=== PATIENT | male | born 1990 | race Caucasian/White ===

== ENCOUNTER 2016-04-21 01:54 | Inpatient (IN) ==
[2016-04-21] MEDS ORDERED: 0.9 % Sodium Chloride 1,000 ML IVC ONE ×2 (02:27→03:57)
[2016-04-21 02:36] LABS: VBG HCO3 24.3 mEq/L (21-27); VBG PH 7.37 pH Units (7.32-7.42)
[2016-04-21 02:37] LABS: Basophils # 0.1 K/mcL (0.0-0.2); Basophils % 0.7 %; Eosinophils # 0.3 K/mcL (0.0-0.6); Hematocrit 44.8 % (37.5-50.1); Hemoglobin 15.6 g/dL (12.9-16.9); Immature Granulocytes % 1.6 % (0-4); Lymphocytes # 2.9 K/mcL (0.6-4.6); Lymphocytes % 26.5 %; Mean Corpuscular HGB Conc 34.8 g/dL (31.6-35.5); Mean Corpuscular Hemoglobin 31.3 pg (28.0-33.3); Mean Platelet Volume 11.7 fL (9.4-12.4); Monocytes # 0.8 K/mcL (0.0-1.3); Neutrophils # 6.7 K/mcL (1.6-8.9); Platelet Count 207 K/mcL (140-400); Red Blood Count 4.98 M/mcL (4.19-5.50); Segmented Neutrophils % 61.2 %
[2016-04-21 02:49] LABS: Magnesium 1.9 mg/dL (1.6-2.6); Phosphorous 4.4 mg/dL (2.3-4.7)
[2016-04-21 02:56] LABS: Alanine Aminotransferase 16 Units/L (0-55); Albumin 3.7 g/dL (3.5-5.0); Alkaline Phosphatase 85 Units/L (38-126); Aspartate Amino Transferase 10 Units/L (5-34); BUN/Creatinine Ratio 16 (6-26); Bilirubin,Total 0.2 mg/dL (0.2-1.2); Blood Urea Nitrogen 19 mg/dL (8-26); Calcium 10.1 mg/dL (8.6-10.8); Carbon Dioxide 17 mEq/L (19-29); Chloride 95 mEq/L (98-109); Globulin 3.8 g/dL (2.4-3.5); Osmolality,Calculated 307 (280-300); Potassium 4.2 mEq/L (3.5-4.5); Sodium 131 mEq/L (136-145); Total Protein 7.5 g/dL (6.0-8.3); eGFR For African Americans > 60 (> 60); eGFR For Non-African Americans > 60 (> 60)
[2016-04-21 02:58] LABS: Glucose 684 mg/dL (70-99)
[2016-04-21] MEDS ORDERED: Vancomycin 1,750 MG in D5% in Water 250 ML IVPB ONE (03:09)
[2016-04-21] MEDS ORDERED: Piperacillin/Tazobactam 3.375 GM in D5% in Water (Mini-Bag+) 100 ML IVPB ONE (03:09)
[2016-04-21 03:15] LABS: Bilirubin,Urine Negative (Negative); Blood,Urine Negative (Negative); Clarity,Urine Clear (Clear); Color,Urine Yellow (Yellow); Glucose,Urine (UA) >=1000 mg/dL (Normal); Ketones,Urine Negative (Negative); Leukocyte Esterase,Urine Negative (Negative); Nitrite,Urine Negative (Negative); Protein,Urine Negative (Neg-Trace); Specific Gravity,Urine > 1.030 (1.010-1.025); Urobilinogen,Urine Normal (Normal)
--- NOTE | 2016-04-21 03:34 | Emergency Department Note ---
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 He presents today due to hyperglycemia and continued/worsening redness of groin abscess. Patient was seen here in the ED approximately 2-3 days ago and prescribed Bactrim for groin abscess/cellulitis. He states that the erythema surrounding the area is getting worse. He also has been taking his blood sugar on home and blood sugars up in 500s to 600s. He takes Lantus and short-acting insulin home, usually Lantus 30 units at night. He does admit that he has been missing some doses because he "does not like injecting himself. "Otherwise, he denies any reverse, nausea, vomiting, diarrhea, abdominal pain, chest pain, shortness breath. Pain Scale: 6 - Related Data Previous Rx's Medication Instructions Recorded HYDROcodone/Acet 5/325 mg [[place] 1 tab PO Q6H PRN #8 tab 04/29/15 5-325 mg] Gabapentin [Neurontin] 300 mg PO BID #30 capsule 07/01/15 Insulin ASPART [Novolog Flexpen] 10 unit SQ TID #3 mls 07/01/15 Lisinopril [Zestril] 5 mg PO DAILY #30 tablet 07/01/15 Metformin [Glucophage] 500 mg PO 0800 #30 tablet 07/01/15 Fluticasone Propionate Nasal 2 spray NS DAILY 7 Days 08/11/15 [Flonase] Amoxicillin/Clavulanate [Augmentin] 500 mg PO BIDWM #14 tablet 08/19/15 Doxycycline 100 mg PO BID #14 capsule 08/19/15 Insulin Glargine,Hum.rec.anlog 40 unit SQ HS #3 mls 08/19/15 [Lantus Solostar] OxyCODONE/APAP 10/325 [Percocet 1 each PO Q6HR PRN #15 tablet 08/19/15 10/325 MG] Cephalexin [Keflex] 500 mg PO TID #30 capsule 08/26/15 Clotrimazole 1% CRM [Lotrimin 1%] 1 appl TP BID #1 tube 09/29/15 Fluconazole [Diflucan] 100 mg PO DAILY #3 tablet 09/29/15 Insulin ASPART [NovoLOG] 10 unit SQ TIDWM 14 Days 09/29/15 Insulin Glargine [Lantus] 30 unit SQ HS 14 Days 09/29/15 Lisinopril [Zestril] 5 mg PO DAILY #14 tablet 09/29/15 Metformin HCl [Fortamet] 500 mg PO DAILY #14 tab.er.24 09/29/15 Naproxen [Naprosyn] 500 mg PO BID PRN #15 tablet 12/22/15 Penicillin VK 500 mg PO TID 3 Days 12/22/15 Ciprofloxacin [Cipro] 500 mg PO BID #14 tablet 03/08/16 Insulin ASPART [Novolog Flexpen] 1 unit SQ 1-2XD PRN #30 insuln.pen 03/08/16 Insulin Glargine,Hum.rec.anlog 1 unit SQ 1-2XD PRN #30 insuln.pen 03/08/16 [Lantus Solostar] MetroNIDAZOLE [Flagyl] 500 mg PO QID #28 tablet 03/08/16 [place], Disposable [[place]] 1 each MC 1-2XD PRN #100 dis.needle 03/08/16 HYDROcodone/Acet 10/325 mg [[place] 1 tab PO Q6HR PRN #12 tab 04/18/16 10-325 mg] Sulfamethoxazole/Trimeth DS 2 each PO BID #28 tablet 04/18/16 [Bactrim DS] Allergies Allergy/AdvReac Type Severity Reaction Status Date / Time No Known Allergies Allergy Verified 04/21/16 01:55 All systems ED: reviewed and negative except as stated. Past Medical History - Past Medical History Attestation: Yes The following information was validated with the patient. Medical history: Reports: diabetes, hypertension Surgical history: Reports: other (Circumcision) Psychiatric history: Reports: no psych history - Social History Smoking Status: Current every day smoker Smokeless Tobacco Status: No Alcohol use: Reports: none Drug use: Reports: none Physical Exam - General Limitations: no limitations General appearance: alert, in no apparent distress - Head Head exam: atraumatic, normocephalic, normal inspection - Eye Eye exam: Present: normal appearance, PERRL, EOMI - ENT ENT exam: normal exam, normal oropharynx, mucous membranes moist - Neck Neck exam: Present: normal inspection, full ROM, trachea midline - Chest Chest inspection: Present: normal inspection, symmetric chest wall rise - Respiratory Respiratory exam: Present: normal lung sounds bilaterally - Cardiovascular Cardiovascular exam: Present: normal rhythm, tachycardia, normal heart sounds - Abdominal Exam Abdominal exam: Present: soft, Non-Tender. Absent: tenderness, distention, guarding, rebound, rigidity - Male exam: Present: other (Patient has erythema, edema extending from groin/ scrotal area to the proximal thigh bilaterally. Also has a small area of 1 cm induration of the left medial groin crease.) - Extremities Exam Extremities exam: Present: normal inspection, full ROM. Absent: tenderness, pedal edema - Back Exam Back exam: Present: normal inspection, full ROM. Absent: tenderness - Neurological Exam Neurological exam: Present: alert, oriented X3 - Psychiatric Psychiatric exam: Present: normal affect, normal mood - Skin Skin exam: Present: warm, dry, intact, normal color, other (Groin: Patient has erythema, edema extending from groin/scrotal area to the proximal thigh bilaterally. Also has a small area of 1 cm induration of the left medial groin crease.) Course Course Narrative: Patient tachycardic and mildly hypertensive on presentation. Otherwise, the rest of the vitals were within normal limits. Physical exam shows Patient has erythema, edema extending from groin/scrotal area to the proximal thigh bilaterally. Also has a small area of 1 cm induration of the left medial groin crease. Blood sugars have been in 500-600 during stay. Given fluids and 10units insulin. Basic labs show that the patient is not in DKA. However, patient has poorly controlled diabetes. Also concern for worsening cellulitis in the groin region. He has failed outpatient treatment of Bactrim. Patient will have to be admitted for IV antibiotics at this time for groin cellulitis and for further care for hyperglycemia. Vital Signs Temperature 98.0 F 04/21/16 01:55 Pulse Rate 102 04/21/16 01:55 Respiratory Rate 16 04/21/16 01:55 Blood Pressure 143/86 04/21/16 01:55 O2 Sat by Pulse Oximetry 97 04/21/16 01:55 Temperature 98.0 F 04/21/16 01:55 Pulse Rate 88 04/21/16 03:28 Respiratory Rate 16 04/21/16 04:22 Blood Pressure 123/75 04/21/16 04:22 O2 Sat by Pulse Oximetry 99 04/21/16 03:28 Oxygen Delivery Oxygen Delivery Room Air Medical Decision Making - MDM Narrative Medical decision making narrative: Patient tachycardic and mildly hypertensive on presentation. Otherwise, the rest of the vitals were within normal limits. Physical exam shows Patient has erythema, edema extending from groin/scrotal area to the proximal thigh bilaterally. Also has a small area of 1 cm induration of the left medial groin crease. Blood sugars have been in 500-600 during stay. Basic labs show that the patient is not in DKA. However, patient has poorly controlled diabetes. Also concern for worsening cellulitis in the groin region. He has failed outpatient treatment of Bactrim. Patient will have to be admitted for IV antibiotics at this time for groin cellulitis and for further care for hyperglycemia. - Medical Records Medical records reviewed: Yes I reviewed the patient's medical records. - Lab Data Lab results reviewed: Yes I reviewed the patient's lab results. Result diagrams: 04/21/16 02:28 04/21/16 02:28 Lab Results 04/21/16 04/21/16 04/21/16 Range/Units 02:15 02:17 02:28 WBC (4.3-11.1) K/mcL RBC (4.19-5.50) M/mcL Hgb (12.9-16.9) g/dL Hct (37.5-50.1) % MCV (83.0-100.0) fL MCH (28.0-33.3) pg MCHC (31.6-35.5) g/dL RDW (11.5-14.5) % Plt Count (140-400) K/mcL MPV (9.4-12.4) fL Immature Gran % (0-4) % Seg Neutrophils % % Lymphocytes % % Monocytes % % Eosinophils % % Basophils % % Neutrophils # (1.6-8.9) K/mcL Lymphocytes # (0.6-4.6) K/mcL Monocytes # (0.0-1.3) K/mcL Eosinophils # (0.0-0.6) K/mcL Basophils # (0.0-0.2) K/mcL VBG pH (7.32-7.42) pH Units VBG pCO2 (41-51) mmHg VBG pO2 (25-40) mmHg VBG HCO3 (21-27) mEq/L Sodium 131 L (136-145) mEq/L Potassium 4.2 (3.5-4.5) mEq/L Chloride 95 L (98-109) mEq/L Carbon Dioxide 17 L (19-29) mEq/L BUN 19 (8-26) mg/dL Creatinine 1.22 (0.72-1.25) mg/dL Est GFR ( Amer) > 60 (> 60) Est GFR (Non-Af Amer) > 60 (> 60) BUN/Creatinine Ratio 16 (6-26) Glucose 684 H* (70-99) mg/dL POC Glucose 597 H* 584 H* (58-89) Calculated Osmolality 307 H (280-300) Calcium 10.1 (8.6-10.8) mg/dL Phosphorus (2.3-4.7) mg/dL Magnesium (1.6-2.6) mg/dL Total Bilirubin 0.2 (0.2-1.2) mg/dL AST 10 (5-34) Units/L ALT 16 (0-55) Units/L Alkaline Phosphatase 85 (38-126) Units/L Serum Total Protein 7.5 (6.0-8.3) g/dL Albumin 3.7 (3.5-5.0) g/dL Globulin 3.8 H (2.4-3.5) g/dL Albumin/Globulin Ratio 1.0 L (1.1-2.2) Beta-Hydroxybutyric Acd (0.02-0.27) mmol/L Urine Color (Yellow) Urine Clarity (Clear) Urine pH (5.0-8.0) pH Units Ur Specific [place] (1.010-1.025) Urine Protein (Neg-Trace) mg/dL Urine Glucose (UA) (Normal) mg/dL Urine Ketones (Negative) mg/dL Urine Blood (Negative) Urine Nitrite (Negative) Urine Bilirubin (Negative) Urine Urobilinogen (Normal) mg/dL Ur Leukocyte Esterase (Negative) Ur Culture Indicated? (NO) 04/21/16 04/21/16 04/21/16 Range/Units 02:28 02:28 02:28 WBC 10.9 (4.3-11.1) K/mcL RBC 4.98 (4.19-5.50) M/mcL Hgb 15.6 (12.9-16.9) g/dL Hct 44.8 (37.5-50.1) % MCV 90.0 (83.0-100.0) fL MCH 31.3 (28.0-33.3) pg MCHC 34.8 (31.6-35.5) g/dL RDW 12.0 (11.5-14.5) % Plt Count 207 (140-400) K/mcL MPV 11.7 (9.4-12.4) fL Immature Gran % 1.6 (0-4) % Seg Neutrophils % 61.2 % Lymphocytes % 26.5 % Monocytes % 7.0 % Eosinophils % 3.0 % Basophils % 0.7 % Neutrophils # 6.7 (1.6-8.9) K/mcL Lymphocytes # 2.9 (0.6-4.6) K/mcL Monocytes # 0.8 (0.0-1.3) K/mcL Eosinophils # 0.3 (0.0-0.6) K/mcL Basophils # 0.1 (0.0-0.2) K/mcL VBG pH 7.37 (7.32-7.42) pH Units VBG pCO2 42 (41-51) mmHg VBG pO2 38 (25-40) mmHg VBG HCO3 24.3 (21-27) mEq/L Sodium (136-145) mEq/L Potassium (3.5-4.5) mEq/L Chloride (98-109) mEq/L Carbon Dioxide (19-29) mEq/L BUN (8-26) mg/dL Creatinine (0.72-1.25) mg/dL Est GFR ( Amer) (> 60) Est GFR (Non-Af Amer) (> 60) BUN/Creatinine Ratio (6-26) Glucose (70-99) mg/dL POC Glucose (58-89) Calculated Osmolality (280-300) Calcium (8.6-10.8) mg/dL Phosphorus (2.3-4.7) mg/dL Magnesium (1.6-2.6) mg/dL Total Bilirubin (0.2-1.2) mg/dL AST (5-34) Units/L ALT (0-55) Units/L Alkaline Phosphatase (38-126) Units/L Serum Total Protein (6.0-8.3) g/dL Albumin (3.5-5.0) g/dL Globulin (2.4-3.5) g/dL Albumin/Globulin Ratio (1.1-2.2) Beta-Hydroxybutyric Acd 0.11 (0.02-0.27) mmol/L Urine Color (Yellow) Urine Clarity (Clear) Urine pH (5.0-8.0) pH Units Ur Specific [place] (1.010-1.025) Urine Protein (Neg-Trace) mg/dL Urine Glucose (UA) (Normal) mg/dL Urine Ketones (Negative) mg/dL Urine Blood (Negative) Urine Nitrite (Negative) Urine Bilirubin (Negative) Urine Urobilinogen (Normal) mg/dL Ur Leukocyte Esterase (Negative) Ur Culture Indicated? (NO) 04/21/16 04/21/16 Range/Units 02:28 03:00 WBC (4.3-11.1) K/mcL RBC (4.19-5.50) M/mcL Hgb (12.9-16.9) g/dL Hct (37.5-50.1) % MCV (83.0-100.0) fL MCH (28.0-33.3) pg MCHC (31.6-35.5) g/dL RDW (11.5-14.5) % Plt Count (140-400) K/mcL MPV (9.4-12.4) fL Immature Gran % (0-4) % Seg Neutrophils % % Lymphocytes % % Monocytes % % Eosinophils % % Basophils % % Neutrophils # (1.6-8.9) K/mcL Lymphocytes # (0.6-4.6) K/mcL Monocytes # (0.0-1.3) K/mcL Eosinophils # (0.0-0.6) K/mcL Basophils # (0.0-0.2) K/mcL VBG pH (7.32-7.42) pH Units VBG pCO2 (41-51) mmHg VBG pO2 (25-40) mmHg VBG HCO3 (21-27) mEq/L Sodium (136-145) mEq/L Potassium (3.5-4.5) mEq/L Chloride (98-109) mEq/L Carbon Dioxide (19-29) mEq/L BUN (8-26) mg/dL Creatinine (0.72-1.25) mg/dL Est GFR ( Amer) (> 60) Est GFR (Non-Af Amer) (> 60) BUN/Creatinine Ratio (6-26) Glucose (70-99) mg/dL POC Glucose (58-89) Calculated Osmolality (280-300) Calcium (8.6-10.8) mg/dL Phosphorus 4.4 (2.3-4.7) mg/dL Magnesium 1.9 (1.6-2.6) mg/dL Total Bilirubin (0.2-1.2) mg/dL AST (5-34) Units/L ALT (0-55) Units/L Alkaline Phosphatase (38-126) Units/L Serum Total Protein (6.0-8.3) g/dL Albumin (3.5-5.0) g/dL Globulin (2.4-3.5) g/dL Albumin/Globulin Ratio (1.1-2.2) Beta-Hydroxybutyric Acd (0.02-0.27) mmol/L Urine Color Yellow (Yellow) Urine Clarity Clear (Clear) Urine pH 6.0 (5.0-8.0) pH Units Ur Specific [place] > 1.030 H (1.010-1.025) Urine Protein Negative (Neg-Trace) mg/dL Urine Glucose (UA) >=1000 H (Normal) mg/dL Urine Ketones Negative (Negative) mg/dL Urine Blood Negative (Negative) Urine Nitrite Negative (Negative) Urine Bilirubin Negative (Negative) Urine Urobilinogen Normal (Normal) mg/dL Ur Leukocyte Esterase Negative (Negative) Ur Culture Indicated? NO (NO) S.B.A.R. - S.B.A.R. Situation: Demographics, MOA Background: Presenting Complaint, Relevant PMH, Meds, & Allergies Assessment: Vital Signs, Course and respsone to treatment, Exam Concerns, Patient/Family Expectation, Pertinant Lab Results, Outstanding Labs Recommendation: Barrier(s) to disposition, Recommendation based on pending studies, treatments, or consults SAngel Report Given to: Dr. Ana Gr Repor Time: 03:58 Attestation Statement - Attestation Attestation: Dr. Guerra note: Patient seen in conjunction with resident Dr. Bryant; please see his chart for complete documentation. I spent [id number] time with the patient and I agree with the patient's treatment and disposition. Patient is afebrile. On examination he has a quarter-sized pustule inferior lateral to his scrotum. It is not fluctuant. There is mild surrounding cellulitis but this is not necrotizing or Fourneirs Gangrene at this time; no indication for drainage or surgical consultation at this time. Poorly controlled noncompliant diabetic who admits he does not like to take his insulin because he does not like needles. Fluids antibiotics and insulin indicated at this time. No significant acidosis. Mentation is normal. Metabolic panel has been reviewed
[2016-04-21] MEDS ORDERED: Insulin Human Regular 10 UNIT in 0.9 % Sodium Chloride 10 ML IV ONE (03:37)
[2016-04-21] MEDS ORDERED: Vancomycin 1,750 MG in D5% in Water 500 ML IVPB ONE (04:00)
[2016-04-21] MEDS ORDERED: Dextrose Gel 15 GM PO PRN ×2 (06:13)
[2016-04-21] MEDS ORDERED: *HR* Dextrose 50 % in Water (Syg) 50 ML SYRINGE IVP PRN (06:13)
[2016-04-21] MEDS ORDERED: D5% in Water 1,000 ML IV PRN (06:13)
[2016-04-21] MEDS ORDERED: *HR* Morphine 2 MG/ML SYRINGE IVP PRN (06:15)
[2016-04-21] MEDS ORDERED: Acetaminophen 325 MG TABLET PO PRN (06:15)
[2016-04-21] MEDS ORDERED: *HR* OxyCODONE Immed Rel 5 MG TABLET PO PRN (06:15)
[2016-04-21 06:33] LABS: Hemoglobin A1C 11.6 %
[2016-04-21] MEDS ORDERED: Vancomycin 1,750 MG in D5% in Water 250 ML IVPB SCH (07:00)
[2016-04-21] MEDS: 0.9 % Sodium Chloride 1,000 ML IVC SCH ×3 (07:01→20:19)
[2016-04-21] MEDS: Insulin LISPRO 300 UNITS/3 ML VIAL SQ SCH ×4 (07:59→16:55)
--- NOTE | 2016-04-21 08:42 | Internal Med History&Physical ---
Date of Encounter: 04/21/16 Time of Encounter: 08:30 Assessment and Plan (1) Cellulitis of groin Current visit: Yes Status: Acute Cellulitis involving the left groin region. Patient has been started On broad- spectrum antibiotics. Normal WBC count. If this does not improve, will consult surgery. Patient at high risk for complications from this condition. (2) Hyperglycemia Current visit: Yes Status: Acute Due to diabetes mellitus type 2. Improving. Continue to monitor blood sugars closely. (3) Diabetes mellitus Current visit: Yes Status: Chronic Uncontrolled diabetes mellitus type 2. Continue to monitor blood sugars. Diabetic diet. Sliding scale insulin. Recommend follow up with primary care provider and referral to [facility] for better management of diabetes as outpatient. We will consult nursing educator. Patient had low bicarbonate on presentation. We will recheck basic panel. Qualifiers: Diabetes mellitus type: type 2 Diabetes mellitus complication detail: with unspecified neuropathy Diabetes mellitus termite renewal inspector insulin use: with custodial use Qualified Code(s): E11.40 - Type 2 diabetes mellitus with diabetic neuropathy, unspecified; Z79.4 - senior care (current) use of insulin Internal Medicine - H&P: HPI Chief complaint: High blood sugars Admitted From: Emergency Dept Plans for Post Hospital Care: Home History of present illness: Mr. Prince is a 26 year old male with history of diabetes mellitus type 2, hypertension presented to the ER with complaints of elevated blood sugars. He had checked his glucometer blood sugars prior to presentation and initially it was greater than 400. He took his insulin and rechecked it in an hour but the machine only read it as high. So he decided to come to the ER. He denies any fever or chills or night sweats. No nausea or vomiting. No abdominal pain. He has chronic bilateral lower extremity pain which was previously diagnosed as neuropathy. He was previously on gabapentin but this has not been resumed by his new primary care provider. He denies any cough or shortness of breath. No chest pain. His been having some redness and swelling involving his left groin region for the past couple of days. He had seen his primary care provider and was started on oral antibiotics for that which seems to have improved his pain. He feels better although the redness is still present. Past Med Surg Social Fam HX - Past Medical History Attestation: Yes The following information was validated with the patient. Medical history: diabetes, hypertension Psychiatric history: no psych history - Past Surgical History Surgical History: other (circumcision) - Social History Smoking Status: Current every day smoker Smokeless Tobacco Status: No Alcohol use: none Drug use: none - Family History Father Living Status: Age at : 38 Hx Family Endocrine Disorder: Yes (DM) Internal Medicine - H&P: Meds HYDROcodone/Acet 5/325 mg [[place] 5-325 mg] 1 tab PO Q6H PRN #8 tab 04/29/15 [Rx] Gabapentin [Neurontin] 300 mg PO BID #30 capsule 07/01/15 [Rx] Insulin ASPART [Novolog Flexpen] 10 unit SQ TID #3 mls 07/01/15 [Rx] Lisinopril [Zestril] 5 mg PO DAILY #30 tablet 07/01/15 [Rx] Metformin [Glucophage] 500 mg PO 0800 #30 tablet 07/01/15 [Rx] Fluticasone Propionate Nasal [Flonase] 2 spray NS DAILY 7 Days 08/11/15 [Rx] Amoxicillin/Clavulanate [Augmentin] 500 mg PO BIDWM #14 tablet 08/19/15 [Rx] Doxycycline 100 mg PO BID #14 capsule 08/19/15 [Rx] Insulin Glargine,Hum.rec.anlog [Lantus Solostar] 40 unit SQ HS #3 mls 08/19/15 [ Rx] OxyCODONE/APAP 10/325 [Percocet 10/325 MG] 1 each PO Q6HR PRN #15 tablet [Rx] Cephalexin [Keflex] 500 mg PO TID #30 capsule 08/26/15 [Rx] Clotrimazole 1% CRM [Lotrimin 1%] 1 appl TP BID #1 tube 09/29/15 [Rx] Fluconazole [Diflucan] 100 mg PO DAILY #3 tablet 09/29/15 [Rx] Insulin ASPART [NovoLOG] 10 unit SQ TIDWM 14 Days 09/29/15 [Rx] Insulin Glargine [Lantus] 30 unit SQ HS 14 Days 09/29/15 [Rx] Lisinopril [Zestril] 5 mg PO DAILY #14 tablet 09/29/15 [Rx] Metformin HCl [Fortamet] 500 mg PO DAILY #14 tab.er.24 09/29/15 [Rx] Naproxen [Naprosyn] 500 mg PO BID PRN #15 tablet 12/22/15 [Rx] Penicillin VK 500 mg PO TID 3 Days 12/22/15 [Rx] Ciprofloxacin [Cipro] 500 mg PO BID #14 tablet 03/08/16 [Rx] Insulin ASPART [Novolog Flexpen] 1 unit SQ 1-2XD PRN #30 insuln.pen 03/08/16 [Rx ] Insulin Glargine,Hum.rec.anlog [Lantus Solostar] 1 unit SQ 1-2XD PRN #30 insuln.pen 03/08/16 [Rx] MetroNIDAZOLE [Flagyl] 500 mg PO QID #28 tablet 03/08/16 [Rx] [place], Disposable [[place]] 1 each MC 1-2XD PRN #100 dis.needle 03/08/16 [Rx] HYDROcodone/Acet 10/325 mg [[place] 10-325 mg] 1 tab PO Q6HR PRN #12 tab 04/18/16 [Rx] Sulfamethoxazole/Trimeth DS [Bactrim DS] 2 each PO BID #28 tablet 04/18/16 [Rx] Allergies No Known Allergies Allergy (Verified 04/21/16 01:55) All Systems PM: A 10-system review of systems was performed and is negative for pertinent findings except as documented above in the HPI. - Constitutional Constitutional: malaise, no chills, no fever(s), no night sweats - EENT Eyes: no change in vision, no discharge, no pain, no photophobia Ears: no ear discharge, no ear pain, no tinnitus Nose, mouth and throat: no dysphagia, no nasal discharge, no neck pain, no sore throat - Cardiovascular Cardiovascular ROS IM: no chest pain, no diaphoresis, no dyspnea, no lightheadedness, no palpitations, no syncope - Respiratory Respiratory: no cough, no dyspnea, no wheezing, no excessive phlegm production - Gastrointestinal Gastrointestinal: no abdominal pain, no diarrhea, no hematemesis, no hematochezia, no melena, no nausea, no vomiting - Musculoskeletal Musculoskeletal ROS IM: no numbness, no tingling - Integumentary Integumentary IM: erythema (left groin), no rash, no unusual bruising - Neurological Neurological ROS: no confusion, no convulsions, no focal weakness, no numbness, no tingling, no tremor(s) - Hematologic/Lymphatic Hematologic/Lymphatic: no easy bruising - Constitutional Vitals: Temp Pulse Resp BP Pulse Ox 97.6 F 82 12 131/73 98 04/21/16 07:58 04/21/16 08:06 04/21/16 07:58 04/21/16 07:58 04/21/16 04:45 General appearance: Present: cooperative, mild distress, A&O X 3, pleasant, obese, answers questions appropriately - Eye Eye exam: Present: EOMI, PERRL, conjuntiva pink, sclera anicteric - Neck Neck exam general surgery: Present: supple, trachea midline. Absent: lymphadenopathy - Respiratory Respiratory exam: Present: CTAB. Absent: accessory muscle use, rales, rhonchi, wheezes - Cardiovascular Cardiovascular exam: Present: RRR, +S1, +S2. Absent: diastolic murmur, gallop, rubs, systolic murmur - GI/Abdominal GI/Abdominal exam: Present: normal bowel sounds, soft, no peritoneal signs. Absent: distended, tenderness - Extremities Exam Extremities exam: Present: warm, radial pulses palpable and symetrical. Absent : calf tenderness, cyanotic, pedal edema - Neurological Exam Neurological exam: Present: alert, CN II-XII intact, oriented X3, no focal deficits. Absent: facial droop, speech deficit - Psychiatric Psychiatric exam: Present: normal affect, normal mood - Skin Skin exam: Present: dry, erythema (Erythema involving the left inguinal region extending to the scrotum. Nontender. Warm to touch.), intact Internal Med - H&P Results - Labs CBC & Chem 7: 04/21/16 02:28 04/21/16 02:28 - Attending Attestation This document has been at least partially created by [employer] recognition technology by Dr. Laughlin. Errors in grammar, wording or other phrases may exist. If errors are found after the documentation is signed, they will be addressed individually in the addendum section of this document when appropriate.
[2016-04-21 10:03] LABS: BUN/Creatinine Ratio 21 (6-26); Blood Urea Nitrogen 16 mg/dL (8-26); Calcium 9.1 mg/dL (8.6-10.8); Carbon Dioxide 21 mEq/L (19-29); Chloride 101 mEq/L (98-109); Glucose 428 mg/dL (70-99); Osmolality,Calculated 299 (280-300); Potassium 3.8 mEq/L (3.5-4.5); Sodium 135 mEq/L (136-145); eGFR For African Americans > 60 (> 60); eGFR For Non-African Americans > 60 (> 60)
[2016-04-21] MEDS: Gabapentin 300 MG CAPSULE PO SCH ×2 (10:28→20:30)
[2016-04-21] MEDS: Piperacillin/Tazobactam 3.375 GM in D5% in Water (Mini-Bag+) 100 ML IVPB SCH ×2 (11:35→20:26)
[2016-04-21] MEDS: Insulin DETEMIR 100 UNIT/ML X5UNITS SQ SCH ×2 (14:28→20:35)
[2016-04-21] MEDS: *HR* Heparin 5,000 UNIT/ML VIAL SQ SCH (16:54)
[2016-04-21] MEDS: Vancomycin 1,750 MG in D5% in Water 500 ML IVPB SCH (16:54)
[2016-04-21] MEDS ORDERED: Insulin LISPRO 300 UNITS/3 ML VIAL SQ SCH ×2 (21:00)
[2016-04-22] MEDS: Piperacillin/Tazobactam 3.375 GM in D5% in Water (Mini-Bag+) 100 ML IVPB SCH (03:09)
[2016-04-22] MEDS: 0.9 % Sodium Chloride 1,000 ML IVC SCH (03:10)
[2016-04-22 04:49] LABS: Basophils # 0.1 K/mcL (0.0-0.2); Eosinophils # 0.4 K/mcL (0.0-0.6); Eosinophils % 4.7 %; Hematocrit 42.1 % (37.5-50.1); Hemoglobin 14.6 g/dL (12.9-16.9); Immature Granulocytes % 1.7 % (0-4); Lymphocytes # 3.2 K/mcL (0.6-4.6); Lymphocytes % 33.7 %; Mean Corpuscular HGB Conc 34.7 g/dL (31.6-35.5); Mean Corpuscular Hemoglobin 31.3 pg (28.0-33.3); Mean Corpuscular Volume 90.1 fL (83.0-100.0); Mean Platelet Volume 11.4 fL (9.4-12.4); Monocytes # 0.7 K/mcL (0.0-1.3); Neutrophils # 4.9 K/mcL (1.6-8.9); Platelet Count 194 K/mcL (140-400); Red Blood Count 4.67 M/mcL (4.19-5.50); Red Cell Distribution Width 12.1 % (11.5-14.5); Segmented Neutrophils % 51.9 %
[2016-04-22 05:02] LABS: BUN/Creatinine Ratio 14 (6-26); Blood Urea Nitrogen 12 mg/dL (8-26); Calcium 8.9 mg/dL (8.6-10.8); Carbon Dioxide 21 mEq/L (19-29); Chloride 102 mEq/L (98-109); Osmolality,Calculated 301 (280-300); Sodium 134 mEq/L (136-145); eGFR For African Americans > 60 (> 60); eGFR For Non-African Americans > 60 (> 60)
[2016-04-22 05:08] LABS: Glucose 514 mg/dL (70-99)
[2016-04-22] MEDS: Vancomycin 1,750 MG in D5% in Water 500 ML IVPB SCH (06:17)
[2016-04-22] MEDS: *HR* Heparin 5,000 UNIT/ML VIAL SQ SCH (06:24)
[2016-04-22] MEDS ORDERED: Insulin DETEMIR 100 UNIT/ML X5UNITS SQ SCH (07:26)
[2016-04-22] MEDS: Insulin LISPRO 300 UNITS/3 ML VIAL SQ SCH ×4 (07:40→12:14)
[2016-04-22] MEDS: Gabapentin 300 MG CAPSULE PO SCH (07:41)
[2016-04-22 10:58] VITALS: BP 133/82
--- NOTE | 2016-04-22 11:02 | Discharge Summary ---
Date of Encounter: 04/22/16 Time of Encounter: 08:00 - Discharge Diagnosis (1) Cellulitis of groin Priority: Primary Status: Acute (2) Hyperglycemia Priority: Secondary Status: Acute (3) Diabetes mellitus Priority: Secondary Status: Chronic Qualifiers: Diabetes mellitus type: type 2 Diabetes mellitus complication detail: with unspecified neuropathy Diabetes mellitus mcc insulin use: with mcc use Qualified Code(s): E11.40 - Type 2 diabetes mellitus with diabetic neuropathy, unspecified; Z79.4 - nursing home (current) use of insulin - Discharge Medications Prescriptions: Gabapentin [Neurontin] 300 mg PO BID #60 capsule Home Medications: Lisinopril [Zestril] 5 mg PO DAILY #14 tablet 09/29/15 [Rx] Metformin HCl [Fortamet] 500 mg PO DAILY #14 tab.er.24 09/29/15 [Rx] Naproxen [Naprosyn] 500 mg PO BID PRN #15 tablet 12/22/15 [Rx] HYDROcodone/Acet 10/325 mg [Holcomb 10-325 mg] 1 tab PO Q6HR PRN #12 tab 04/18/16 [Rx] Insulin ASPART [Novolog Flexpen] 0 unit SQ 1-2XD PRN 04/21/16 [History] Insulin Glargine,Hum.rec.anlog [Lantus Solostar] 0 unit SQ 1-2XD PRN 04/21/16 [ History] Gabapentin [Neurontin] 300 mg PO BID #60 capsule 04/22/16 [Rx] Sulfamethoxazole/Trimeth DS [Bactrim Ds] 1 each PO BID #28 tablet 04/22/16 [Rx] Allergies/Adverse Reactions: Allergies No Known Allergies Allergy (Verified 04/21/16 01:55) Date of admission: 04/21/16 06:15 Primary care physician: PCP NO Consults: 04/21/16 13:12 Consult to Circular Stuffer [CONS] Routine Comment: A1c of 11.6% Discharging clinician: Silvano Laughlin Anticipated date of discharge: 04/22/16 - Patient Status Disposition: Home, Self-Care Condition: Good Functional capacity at discharge: independent ambulation Overall status at discharge: patient is progressing back to baseline - Discharge Instructions Instructions: Cellulitis (DC), Diabetes Mellitus Type 2 in Adults (DC) Follow Up With: Bradley Mcbride DO [Resident] - 06/01/16 3:00 pm (Please take your new patient packet with you to your Doctors Appointment filled out. Also take with you your picture ID,your insurance card, and all medications in the bottle. Also take along your discharge instrucations. Show up 15 minutes early. If you have to cancel please call withing 24 hours of your appointment to . Thanks) Additional Instructions: Follow-up for diabetes mellitus for management of diabetes in one week - Diet and Activity Activity: resume usual activities as tolerated Diet: diabetic diet, low fat, low cholesterol, low salt diet Hospital course: Mr. Prince is a 26 year old male with history of diabetes mellitus type 2, hypertension who was admitted here with cellulitis involving his groin and uncontrolled hyperglycemia. She was treated initially with intravenous insulin and IV fluids with improvement in his blood sugar levels. He also received intravenous antibiotics for his groin cellulitis. Today he is feeling much better. His cellulitis is improving. His blood sugars remain elevated at much better than on presentation. His insulin regimen has been adjusted to control his blood sugars better. He is advised to follow-up with his primary care provider and diabetes nurse for better management of his diabetes. He will also complete treatment for his cellulitis with Bactrim. - Time Spent with Patient Total time spent providing and/or coordinating discharge services: Greater than 30 minutes - Constitutional Vitals: Temp Pulse Resp BP Pulse Ox 98.1 F 80 18 129/86 97 04/22/16 07:49 04/22/16 03:19 04/22/16 07:49 04/22/16 07:49 04/22/16 03:19 General appearance: Present: cooperative, A&O X 3, pleasant, no acute distress, obese, answers questions appropriately - Cardiovascular Cardiovascular exam: Present: RRR, +S1, +S2. Absent: diastolic murmur, gallop, rubs, systolic murmur - Extremities Exam Extremities exam: Present: warm, radial pulses palpable and symetrical. Absent : calf tenderness, cyanotic, pedal edema - Neurological Exam Neurological exam: Present: CN II-XII intact, no focal deficits. Absent: pronater drift, facial droop, speech deficit - Skin Skin exam: Present: dry, erythema (Improving in his left groin), intact - Attending Attestation This document has been at least partially created by [employer] recognition technology by Dr. Laughlin. Errors in grammar, wording or other phrases may exist. If errors are found after the documentation is signed, they will be addressed individually in the addendum section of this document when appropriate.
[2016-04-22] MEDS ORDERED: FLU VACC QS2016-17 36MOS UP/PF 0.5 ML SYRINGE IM ONE (12:07)
[2016-04-22] MEDS ORDERED: Aminoglycoside Consult 1 EACH MC ONE (12:29)
== END 2016-04-22 12:30 | disposition home or self-care (01) | DRG 383 ==
LOC: 2NNU 01:54 → EMEROO 01:54 → 2NNU 04:40 → SUATTDRO 06:15
PROVIDERS: ADMIT Internal Medicine; ATTEND Internal Medicine

== ENCOUNTER 2019-06-17 08:18 | Observation (INO) ==
[2019-06-17] MEDS ORDERED: Ondansetron 4 MG/2 ML VIAL IVP PRN (10:51)
[2019-06-17] MEDS ORDERED: *HR* Promethazine 25 MG/ML VIAL IVP PRN (10:51)
[2019-06-17] MEDS ORDERED: Naloxone 0.4 MG/ML INJ IVP PRN (10:51)
[2019-06-17] MEDS ORDERED: D5% in Water 1,000 ML IVC PRN (11:22)
[2019-06-17] MEDS ORDERED: *HR* Dextrose 50 % in Water (Syg) 50 ML SYRINGE IVP PRN (11:22)
[2019-06-17] MEDS ORDERED: Dextrose Gel 15 GM/37.5 ML TUBE PO PRN ×2 (11:22)
[2019-06-17 11:25] LABS: Basophils % 0.4 %; Eosinophils # 0.5 K/mcL (0.0-0.6); Eosinophils % 4.2 %; Hematocrit 42.4 % (37.5-50.1); Hemoglobin 14.5 g/dL (12.9-16.9); Immature Granulocytes % 0.4 % (0-4); Lymphocytes # 2.2 K/mcL (0.6-4.6); Lymphocytes % 19.7 %; Mean Corpuscular HGB Conc 34.2 g/dL (31.6-35.5); Mean Corpuscular Hemoglobin 31.9 pg (28.0-33.3); Mean Corpuscular Volume 93.4 fL (83.0-100.0); Mean Platelet Volume 10.6 fL (9.4-12.4); Monocytes % 9.3 %; Neutrophils # 7.3 K/mcL (1.6-8.9); Platelet Count 198 K/mcL (140-400); Red Blood Count 4.54 M/mcL (4.19-5.50); Red Cell Distribution Width 12.3 % (11.5-14.5)
[2019-06-17] MEDS ORDERED: 0.9 % Sodium Chloride 1,000 ML IVC SCH (11:30)
[2019-06-17 11:36] LABS: Prothrombin Time 11.2 Seconds (9.4-12.1)
[2019-06-17 11:38] LABS: Activated Partial Thrombo Time 32.7 Seconds (26.0-36.0)
[2019-06-17 11:44] LABS: Alanine Aminotransferase 10 Units/L (7-52); Albumin 3.7 g/dL (3.5-5.7); Albumin/Globulin Ratio 1.4 (1.1-2.2); Alkaline Phosphatase 65 Units/L (34-104); Aspartate Amino Transferase 7 Units/L (13-39); BUN/Creatinine Ratio 22 (6-26); Bilirubin,Total 0.3 mg/dL (0.3-1.0); Blood Urea Nitrogen 16 mg/dL (6-20); Calcium 9.5 mg/dL (8.6-10.3); Carbon Dioxide 25 mEq/L (23-29); Chloride 106 mEq/L (98-107); Globulin 2.6 g/dL (2.4-3.5); Glucose 301 mg/dL (70-105); Osmolality,Calculated 296 (280-300); Potassium 3.8 mEq/L (3.5-5.1); Sodium 137 mEq/L (136-145); Total Protein 6.3 g/dL (6.4-8.9); eGFR For African Americans > 60 (> 60); eGFR For Non-African Americans > 60 (> 60)
[2019-06-17] MEDS: Insulin LISPRO 300 UNITS/3 ML VIAL SQ SCH ×3 (12:14→20:42)
[2019-06-17 12:33] LABS: Estimated Average Glucose 275 mg/dl
[2019-06-17] MEDS ORDERED: Aminoglycoside Consult 1 EACH MC ONE (13:15)
[2019-06-17] MEDS: Nicotine 21 MG PATCH.TD24 TD SCH (13:19)
[2019-06-17] MEDS: Piperacillin/Tazobactam 3.375 GM in 0.9 % Sodium Chloride Mini Bag 100 ML IVPB SCH ×2 (16:19→23:52)
[2019-06-18 06:02] LABS: Hematocrit 41.5 % (37.5-50.1); Hemoglobin 13.8 g/dL (12.9-16.9); Mean Corpuscular HGB Conc 33.3 g/dL (31.6-35.5); Mean Corpuscular Hemoglobin 31.2 pg (28.0-33.3); Mean Corpuscular Volume 93.7 fL (83.0-100.0); Mean Platelet Volume 10.8 fL (9.4-12.4); Platelet Count 180 K/mcL (140-400); Red Blood Count 4.43 M/mcL (4.19-5.50); Red Cell Distribution Width 12.1 % (11.5-14.5); White Blood Count 9.9 K/mcL (4.3-11.1)
[2019-06-18 06:22] LABS: BUN/Creatinine Ratio 17 (6-26); Blood Urea Nitrogen 12 mg/dL (6-20); Calcium 8.5 mg/dL (8.6-10.3); Carbon Dioxide 28 mEq/L (23-29); Chloride 103 mEq/L (98-107); Glucose 239 mg/dL (70-105); Osmolality,Calculated 290 (280-300); Potassium 3.8 mEq/L (3.5-5.1); Sodium 136 mEq/L (136-145); eGFR For African Americans > 60 (> 60); eGFR For Non-African Americans > 60 (> 60)
[2019-06-18] MEDS: Insulin LISPRO 300 UNITS/3 ML VIAL SQ SCH ×4 (09:03→21:32)
[2019-06-18] MEDS: Nicotine 21 MG PATCH.TD24 TD SCH (09:03)
[2019-06-18] MEDS: Piperacillin/Tazobactam 3.375 GM in 0.9 % Sodium Chloride Mini Bag 100 ML IVPB SCH ×3 (09:04→23:46)
[2019-06-18] MEDS: Gabapentin 300 MG CAPSULE PO SCH ×3 (10:57→21:32)
[2019-06-18] MEDS: lisinopriL 5 MG TABLET PO SCH (10:57)
[2019-06-18] MEDS ORDERED: *HR* HYDROmorphone (PF) 1 MG/ML SYRINGE IVP ONE (13:28)
[2019-06-18] MEDS: Insulin DETEMIR 100 UNIT/ML X5UNITS SQ SCH ×2 (16:07→23:45)
[2019-06-19] MEDS: Insulin LISPRO 300 UNITS/3 ML VIAL SQ SCH ×2 (11:16→11:43)
[2019-06-19] MEDS: lisinopriL 5 MG TABLET PO SCH (11:41)
[2019-06-19] MEDS: Piperacillin/Tazobactam 3.375 GM in 0.9 % Sodium Chloride Mini Bag 100 ML IVPB SCH (11:41)
[2019-06-19] MEDS: Nicotine 21 MG PATCH.TD24 TD SCH (11:41)
[2019-06-19] MEDS: Gabapentin 300 MG CAPSULE PO SCH (11:41)
[2019-06-19 16:13] VITALS: BP 119/67
== END 2019-06-19 13:16 | disposition home or self-care (01) ==
LOC: 3ANU
PROVIDERS: ADMIT Family Medicine; ATTEND Family Medicine